=== PATIENT | female | born 1955 | race Caucasian/White ===

== ENCOUNTER 2020-04-19 10:13 | Emergency (ER) | payer BC ==
[~2020-04-19] VITALS: Ht 160 cm; Wt 61.9 kg
--- NOTE | 2020-04-19 12:21 | NUR ---
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
[2020-04-19 12:42] VITALS: BP 138/64
--- NOTE | 2020-04-19 12:51 | NUR ---
AT BEDSIDE TO ASSESS PT.
[2020-04-19] MEDS ORDERED: KETOROLAC 30 MG/1 ML ONE (12:55)
[2020-04-19] MEDS ORDERED: KETOROLAC 30 MG/1 ML IM ONE (13:00)
--- NOTE | 2020-04-19 13:00 | NUR ---
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
== END 2020-04-19 13:27 | disposition home or self-care (01) ==
LOC: ED 12:26
DX: S29.012A Strain of muscle and tendon of back wall of thorax, initial encounter (principal); M48.54XA Collapsed vertebra, not elsewhere classified, thoracic region, initial encounter for fracture; X58.XXXA Exposure to other specified factors, initial encounter; Y93.89 Activity, other specified; Y92.89 Other specified places as the place of occurrence of the external cause; Y99.8 Other external cause status
CPT/HCPCS: 72072; 96372; 99283; J1885

== ENCOUNTER 2020-07-03 12:09 | Emergency (ER) | payer BC ==
[~2020-07-03] VITALS: Ht 160 cm; Wt 63.3 kg
--- NOTE | 2020-07-03 12:23 | NUR ---
PT IS A 64F COMPLAINING OF LOWER BACK PAIN AND SPASMS AFTER TAKING A LAXATIVE. SHE IS REQUESTING A SHOT OF TORADOL AND STATES HER PCP (DR. CHAUDHRY) KNOWS SHE IS HERE AND REFERRED HER. SHE IS RESTING COMFORTABLY IN BED. CONTINUOUS SPO2 AND CYCLING VITALS. CALL LIGHT WITHIN REACH.
[2020-07-03] MEDS ORDERED: LEVO25TA2 PO (12:26)
[2020-07-03 12:27] VITALS: BP 134/67
[2020-07-03] MEDS ORDERED: SIMV20TA19 PO (12:27)
[2020-07-03] MEDS ORDERED: KETOROLAC 30 MG/1 ML ONE (12:37)
[2020-07-03] MEDS ORDERED: KETOROLAC 30 MG/1 ML IM ONE (13:00)
--- NOTE | 2020-07-03 13:14 | NUR ---
BREAK RN- DISCHARGE INSTRUCTIONS REVIEWED
== END 2020-07-03 13:20 | disposition home or self-care (01) ==
LOC: ED 12:55
DX: S39.012A Strain of muscle, fascia and tendon of lower back, initial encounter (principal); X58.XXXA Exposure to other specified factors, initial encounter; Y93.89 Activity, other specified; Y92.89 Other specified places as the place of occurrence of the external cause; Y99.8 Other external cause status
CPT/HCPCS: 96372; 99283; J1885